=== PATIENT | male | born 1960 | race African-American/Black ===

== ENCOUNTER 2017-07-26 16:29 | Emergency (ER) | payer BC ==
[~2017-07-26] VITALS: Ht 175.3 cm; Wt 65.3 kg
[2017-07-26 16:45] VITALS: BP 154/97
[2017-07-26 17:09] LABS: BILIRUBIN,URINE SMALL (NEG); GLUCOSE,URINE NEGATIVE (NEG); NITRITE,URINE NEGATIVE (NEG); PROTEIN,URINE NEGATIVE (NEG-TRACE)
[2017-07-26 17:17] LABS: BARBITURATES NEG (NEG); BENZODIAZEPINES NEG (NEG); CANNABINOIDS NEG (NEG); COCAINE NEG (NEG); METHADONE NEG (NEG); OPIATES NEG (NEG); PHENCYCLIDINE NEG (NEG)
[2017-07-26 17:22] LABS: BACTERIA,URINE 0 /HPF (0-FEW); RBC,URINE 0 /HPF (0-2); WBC,URINE 0 /HPF (0-4)
--- NOTE | 2017-07-26 17:57 | PHYS DOC ---
Past Medical History Past Medical History: No Pertinent History Past Surgical History: No Surgical History Alcohol Use: None Drug Use: None Adult General Chief Complaint Chief Complaint: ALTERED MENTAL STATUS HPI HPI Patient is a 57 year old male who presents with complaint of anxiety. The patient was brought to the emergency department by his and daughter for evaluation of anxiety. The patient states that he had seen his primary doctor 1 month ago and was started on medication help with anxiety, however he states he has not been taking this. Patient states that he has been under a lot of stress and attributes this to his work. 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 The patient states that he is having difficulty identifying other triggers for his anxiety but that this has been affecting his daily life. The patient reportedly has been eating much less than usual and his family states that the patient has been losing weight over the past several weeks. Patient states that he has not been taking the medication that was prescribed to him one month ago as he did not want to "be hooked on pills." The patient states that he came to the emergency department today because he feels like he needed counseling. His family on the other hand notes that the patient has been displaying concerning behavior. Patient denies suicidal or homicidal ideation, however the patient's states that the patient had held a rope in his hands a few days ago in a threatening manner as if he were going to hang himself. The patient states that this did happen but he states that he was joking and he has no serious intention of committing suicide. Patient's also notes that in the middle of the night she has found the patient standing over her and has felt that this was in a threatening manner and this did not make her feel safe. The patient denies any other complaints at this time including shortness of breath, nausea, vomiting, bloody stools, or chest pain. Review of Systems Review of Systems Constitutional: Anxiety, denies fever or chills[] Eyes: Denies change in visual acuity, redness, or eye pain [] HENT: Denies nasal congestion or sore throat [] Respiratory: Denies cough or shortness of breath [] Cardiovascular: Denies chest pain or edema[] GI: Denies abdominal pain, nausea, vomiting, bloody stools or diarrhea [] : Denies dysuria or hematuria [] Musculoskeletal: Denies back pain or joint pain [] Integument: Denies rash or skin lesions [] Neurologic: Denies headache, focal weakness or sensory changes [] Allergies Allergies Allergies Coded Allergies Type Severity Reaction Last Updated Verified Aminoglycosides Allergy Intermediate FACIAL SWELLING 05/06/16 Yes Cephalosporins Allergy Intermediate FACIAL SWELLING 05/06/16 Yes Macrolide Antibiotics Allergy Intermediate FACIAL SWELLING 05/06/16 Yes Penicillins Allergy Intermediate FACIAL SWELLING 05/06/16 Yes Tetracyclines Allergy Intermediate FACIAL SWELLING 05/06/16 Yes clindamycin Allergy Intermediate FACIAL SWELLING 05/06/16 Yes levofloxacin Allergy Intermediate FACIAL SWELLING 05/06/16 Yes sulfamethoxazole Allergy Intermediate FACIAL SWELLING 05/06/16 Yes trimethoprim Allergy Intermediate FACIAL SWELLING 05/06/16 Yes Physical Exam Physical Exam Constitutional: Alert, afebrile, appears mildly anxious[] HENT: Normocephalic, atraumatic, bilateral external ears normal, oropharynx moist, no oral exudates, nose normal. [] Eyes: PERRLA, EOMI, conjunctiva normal, no discharge. [] Neck: Normal range of motion, no tenderness, supple, no stridor. [] Cardiovascular:Heart rate regular rhythm, no murmur [] Lungs & Thorax: Bilateral breath sounds clear to auscultation [] Abdomen: Bowel sounds normal, soft, no tenderness, no masses, no pulsatile masses. [] Skin: Warm, dry, no erythema, no rash. [] Back: No tenderness, no CVA tenderness. [] Extremities: No tenderness, no cyanosis, no clubbing, ROM intact, no edema. [] Neurologic: Alert and oriented X 3, normal motor function, normal sensory function, no focal deficits noted. [] Current Patient Data Vital Signs Vital Signs Date Time Temp Pulse Resp B/P (MAP) Pulse Ox O2 Delivery O2 Flow Rate FiO2 07/26/17 16:45 97.9 81 18 154/97 (116) 98 Room Air 97.9 Lab Values Laboratory Tests Test 07/26/17 16:45 07/26/17 19:40 Urine Collection Type Unknown Urine Color Yellow Urine Clarity Clear Urine pH 6.0 Urine Specific [place] 1.020 Urine Protein Negative mg/dL (NEG-TRACE) Urine Glucose (UA) Negative mg/dL (NEG) Urine Ketones (Stick) Negative mg/dL (NEG) Urine Blood Negative (NEG) Urine Nitrite Negative (NEG) Urine Bilirubin Small (NEG) Urine Urobilinogen Dipstick 1.0 mg/dL (0.2 mg/dL) Urine Leukocyte Esterase Negative (NEG) Urine RBC 0 /HPF (0-2) Urine WBC 0 /HPF (0-4) Urine Bacteria 0 /HPF (0-FEW) Urine Mucus Mod /LPF Urine Opiates Screen Neg (NEG) Urine Methadone Screen Neg (NEG) Urine Barbiturates Neg (NEG) Urine Phencyclidine Screen Neg (NEG) Urine Amphetamine/Methamphetamine Neg (NEG) Urine Benzodiazepines Screen Neg (NEG) Urine Cocaine Screen Neg (NEG) Urine Cannabinoids Screen Neg (NEG) Urine Ethyl Alcohol Neg (NEG) White Blood Count 4.1 x10^3/uL (4.0-11.0) Red Blood Count 5.24 x10^6/uL (4.30-5.70) Hemoglobin 15.3 g/dL (13.0-17.5) Hematocrit 46.3 % (39.0-53.0) Mean Corpuscular Volume 88 fL (79-100) Mean Corpuscular Hemoglobin 29 pg (25-35) Mean Corpuscular Hemoglobin Concent 33 g/dL (31-37) Red Cell Distribution Width 14.1 % (11.5-14.5) Platelet Count 238 x10^3/uL (140-400) Neutrophils (%) (Auto) 50 % (31-73) Lymphocytes (%) (Auto) 34 % (24-48) Monocytes (%) (Auto) 11 % (0-9) H Eosinophils (%) (Auto) 4 % (0-3) H Basophils (%) (Auto) 1 % (0-3) Neutrophils # (Auto) 2.0 x10^3uL (1.8-7.7) Lymphocytes # (Auto) 1.4 x10^3/uL (1.0-4.8) Monocytes # (Auto) 0.5 x10^3/uL (0.0-1.1) Eosinophils # (Auto) 0.2 x10^3/uL (0.0-0.7) Basophils # (Auto) 0.0 x10^3/uL (0.0-0.2) Sodium Level 140 mmol/L (136-145) Potassium Level 4.4 mmol/L (3.5-5.1) Chloride Level 103 mmol/L (98-107) Carbon Dioxide Level 31 mmol/L (21-32) Anion Gap 6 (6-14) Blood Urea Nitrogen 6 mg/dL (8-26) L Creatinine 0.8 mg/dL (0.7-1.3) Estimated GFR (Cockcroft-Gault) 119.7 BUN/Creatinine Ratio 8 (6-20) Glucose Level 109 mg/dL (70-99) H Calcium Level 9.5 mg/dL (8.5-10.1) Magnesium Level 2.5 mg/dL (1.8-2.4) H Total Bilirubin 0.4 mg/dL (0.2-1.0) Aspartate Amino Transferase (AST) 13 U/L (15-37) L Alanine Aminotransferase (ALT) 19 U/L (16-63) Alkaline Phosphatase 104 U/L (46-116) Total Protein 7.9 g/dL (6.4-8.2) Albumin 4.2 g/dL (3.4-5.0) Albumin/Globulin Ratio 1.1 (1.0-1.7) Thyroid Stimulating Hormone (TSH) 0.877 uIU/mL (0.358-3.74) Laboratory Tests 07/26/17 19:40 Laboratory Tests 07/26/17 19:40 EKG EKG Not performed[] Radiology/Procedures Radiology/Procedures Not performed[] Course & Med Decision Making Course & Med Decision Making Pertinent Labs and Imaging studies reviewed. (See chart for details) After speaking with both the patient and the patient's family, I felt that it was appropriate for patient to receive screening from our psychiatric assessment team. The patient was initially evaluated by Danelle who spoke with both patient and family together. They did voice concern that the patient has been having trouble with intermittent confusion, however they state that the patient does not seem to be homicidal or suicidal. The patient also denies both homicidality and suicidality. The patient at this time states that he does not wish to pursue inpatient treatment. The patient however is agreeable to trying medication at this time to help with his anxiety. The patient is also agreeable to following up with his primary doctor for reevaluation and to pursue continued outpatient counseling. The patient's family state that they feel safe at this time and would be agreeable to help with outpatient follow-up for the patient. The patient will be started on hydroxyzine to use as needed for anxiety. Advise follow-up with Dr. Cox, patient's primary doctor, in the next 2-3 days for reevaluation. Recommended return to the emergency department for any worsening symptoms. Patient and family voiced understanding and was in agreement with treatment plan. Dragon Disclaimer Dragon Disclaimer This electronic medical record was generated, in whole or in part, using a voice recognition dictation system. Departure Departure Impression: Primary Impression: Anxiety Disposition: 01 HOME, SELF-CARE Condition: IMPROVED Referrals: JAMEEL COX MD (PCP) Patient Instructions: Anxiety and Panic Attacks Additional Instructions: Follow-up with your primary doctor in 2-3 days for reevaluation. Return to the emergency department for any worsening symptoms. Scripts Hydroxyzine Hcl (HYDROXYZINE HCL) 25 Mg Tablet 25 MG PO Q6HRS Y for ANXIETY / AGITATION, #60 TAB Prov: NIMESH MURILLO MD 07/26/17 NIMESH MURILLO MD Jul 26, 2017 17:57
[2017-07-26 19:51] LABS: BASO % 1 % (0-3); EOS % 4 % (0-3); HEMATOCRIT 46.3 % (39.0-53.0); HEMOGLOBIN 15.3 g/dL (13.0-17.5); LYMPH # 1.4 x10^3/uL (1.0-4.8); LYMPH % 34 % (24-48); MEAN CORPUSCULAR HEMOGLOBIN 29 pg (25-35); MEAN CORPUSCULAR HGB CONC 33 g/dL (31-37); MEAN CORPUSCULAR VOLUME 88 fL (79-100); MONO % 11 % (0-9); NEUT % 50 % (31-73); PLATELET COUNT 238 x10^3/uL (140-400); RED BLOOD COUNT 5.24 x10^6/uL (4.30-5.70); RED CELL DISTRIBUTION WIDTH 14.1 % (11.5-14.5); WHITE BLOOD COUNT 4.1 x10^3/uL (4.0-11.0)
[2017-07-26 20:04] LABS: CALCIUM 9.5 mg/dL (8.5-10.1); CREATININE 0.8 mg/dL (0.7-1.3); GFR 119.7; POTASSIUM 4.4 mmol/L (3.5-5.1)
[2017-07-26 20:10] LABS: ALBUMIN 4.2 g/dL (3.4-5.0); ALBUMIN/GLOBULIN RATIO 1.1 (1.0-1.7); MAGNESIUM 2.5 mg/dL (1.8-2.4); TOTAL BILIRUBIN 0.4 mg/dL (0.2-1.0); TOTAL PROTEIN 7.9 g/dL (6.4-8.2)
[2017-07-26] MEDS ORDERED: HYDR25TA PO (20:47)
== END 2017-07-26 20:53 | disposition home or self-care (01) ==
LOC: ER 16:29
DX: F41.9 Anxiety disorder, unspecified (principal); Z88.0 Allergy status to penicillin
CPT/HCPCS: 36415; 80053; 80307; 81001; 83735; 84443; 85025; 99284; G0479